=== PATIENT | male | born 1960 | race African-American/Black ===

== ENCOUNTER 2023-12-04 13:34 | Outpatient (CLI) | payer OTHER, SELFPAY ==
--- NOTE | ~2023-12-04 | MR_ITS ---
EXAMINATION: MR brain/brain stem wo/w con DATE: 12/04/2023 14:51 INDICATION: Chronic sinusitis with skull base dehiscence. TECHNIQUE: Magnetic resonance imaging (MRI) of the brain and brainstem was performed without and with 17 mL MultiHance intravenous contrast. COMPARISON: None. FINDINGS: There are scattered areas of nonspecific increased T2-weighted signal intensity in the cere bral white matter, which is within normal limits for the patient's age. There is no intracranial hemo rrhage, acute infarction, or abnormal intracranial mass lesion. The ventricles are normal in size. Th ere is extensive mucosal thickening in the paranasal sinuses and nasal cavity with only mild involvem ent of the sphenoid sinus and left maxillary sinus. There is dehiscence of the medial wall of right o rbit. There is dehiscence of right posterior wall of frontal sinus. There is a trace right mastoid ef fusion. IMPRESSION: 1. Normal aging brain. 2. Extensive mucosal thickening in the paranasal sinuses and nasal cavity, most likely sinonasal poly posis. Reviewed, dictated and finalized at location A. IMPRESSION: 1. Normal aging brain. 2. Extensive mucosal thickening in the paranasal sinuses and nasal cavity, most likely sinonasal polyposis.
== END 2023-12-04 13:35 | disposition home or self-care (01) ==
LOC: ANHIMG 13:35
PROVIDERS: Visit Provider Internal Medicine
DX: E78.5 Hyperlipidemia, unspecified (principal); I10 Essential (primary) hypertension; J45.909 Unspecified asthma, uncomplicated; S83.90XA Sprain of unspecified site of unspecified knee, initial encounter; J33.9 Nasal polyp, unspecified; J32.9 Chronic sinusitis, unspecified; R73.9 Hyperglycemia, unspecified; H25.9 Unspecified age-related cataract
CPT/HCPCS: 70553; A9577

== ENCOUNTER 2025-03-02 00:09 | Day surgery (SDC) | payer OTHER, SELFPAY ==
[2025-02-18 08:06] VITALS: BMI 27.5
--- NOTE | 2025-02-18 08:24 | PC.NURSE ---
Addendum entered by Neftaly Soriano RN 02/18/25 08:32: EKG in past year and BMP or CMP done in past 2 months would be helpful if you have them, else de jesus we will do day of stay. Original Note: Report to hospital entrance 7 right of the green pavilion located off [address] next to 's parking lot, at time _0700_ on date _[id number]_. Planned Procedure Time: _0900_.? Time changes happen often and if your time is changed the preop area will call you the afternoon before. - You and your visitor will be asked to self-screen and do not enter if you have any COVID symptoms. Please call surgeon if you need to reschedule. - A mask is optional within the hospital at this time. Patients may have clear liquids (water, carbonated beverages, clear teas, apple juice) until 3 hours prior to surgery with a maximum of 20 ounces. - No food from midnight until time of surgery and no smoking, or chewing tobacco (or any form of nicotine). No chewing gum, candy or mints. Take only the following medications with a SIP of water on the morning of surgery: __Sinus rinse and Flonase.___ DO NOT STOP ANY OF YOUR OTHER PRESCRIPTION MEDICATIONS PRIOR TO SURGERY EXCEPT THE FOLLOWING Hold all vitamins and supplements for 3 days per anesthesiologist. Medications to discontinue per physician Aspirin instruction per Dr Phillips. Date to take last dose Please no make-up, nail wolof, hairspray, perfume, deodorant, or body powder the day of surgery.? No jewelry (including any body piercings) or valuables the day of surgery, leave them at home.? Please take a shower or bath the night before, or the morning of, surgery with an antibacterial soap.? Wear comfortable, loose fitting clothing.? - Jewelry must be removed prior to entering the operating room.? Rings and piercings that are not removed may be cut off. - The hospital will not accept responsibility for valuables.? - Please leave all valuables, including medications, at home the day of surgery. If you are going home after surgery, a licensed tank wagon driver must drive you home.? - NO public transportation without another adult if you receive anesthesia. - We recommend that an adult stay with you for 24 hours following discharge. - We also recommend that you do not drive, make important decision, drink alcoholic beverages, or take any drugs that were not prescribed by your health care provider for at least 24 hours after your discharge time. Follow any additional instructions given to you from your surgeon. Telephone instructions given to __Val Abraham___and asked if any additional questions and then verbalized understanding. Patient advised to call surgeon office or pre surgery nurse liaison [phone] if any additional questions.
[2025-03-02] VITALS (10 sets, daily range): BP systolic 138–210; BP diastolic 80–125; PULSE 76–94; RESP 12–16; TEMP 36.3–36.6; O2SAT 96–100
--- NOTE | 2025-03-02 06:05 | ECG_ITS ---
Test Date: 2025-03-02 08:15:07 Measurements Intervals Sunset Rate: 76 P: 53 NH: 167 QRS: 15 QRSD: 94 T: 41 QT: 386 QTc: 436 Interpretive Statements SINUS RHYTHM No previous ECG available for comparison Electronically Signed On 03-02-2025 14:31:36 CDT by Iraj Topete M.D.
[2025-03-02 08:00] LABS: INR 1.0; Partial Thromboplastin Time 26.9 Seconds (22.3-36.8); Prothrombin Time 13.2 Seconds (11.1-14.7)
[2025-03-02] MEDS: OXYMETAZOLINE HCL 0.05% NAS 15 ML BTL (*BKC) 1 SPRAY NASAL (08:01)
[2025-03-02] MEDS: LACTATED RINGERS 1,000 ML 30 ML IV CONT ×2 (08:01→10:22)
[2025-03-02] MEDS: ACETAMINOPHEN 500 MG TABLET 1000 MG PO (08:01)
[2025-03-02 08:11] LABS: Anion Gap 10 mmol/L (4-12); Blood Urea Nitrogen 12 mg/dL (9-20); Calcium 9.5 mg/dL (8.4-10.2); Carbon Dioxide 26 mmol/L (22-30); Chloride 105 mmol/L (98-107); Estimated CRCL calculation 66 ml/min; Estimated Glomerular Filt Rate > 60; Glucose 93 mg/dL (65-110); Potassium 3.9 mmol/L (3.4-5.0); Sodium 141 mmol/L (137-145)
--- NOTE | 2025-03-02 08:12 | WPDANESEPPF ---
Anes - Initial Pre Proc Eval Procedure: Operation Date: 03/02/25 09:00 Proposed Procedures p Image Guided Bilateral Frontal Sinusotomy, Bilateral Ethmoidectomy, Bilateral Sphenoidotomy, Bilateral Maxillary Antrostomy, Bilateral Turbinate Reduction, Bilateral Nasal Polypectomy - Eddie Phillips MD s Endoscopic Septoplasty - Eddie Phillips MD Date/Time: 03/02/25 08:12 Surgeon: Eddie Phillips MD Pre Op Diagnosis: Chronic Sinusitis, Deviated Septum Patient Data Age: 64 Gender: M Height: 1.8 m Weight: 89.8 kg Last Vital Signs Temp 36.3 C L 03/02/25 08:05 Pulse 79 03/02/25 08:05 Resp 16 03/02/25 08:05 BP 188/121 H 03/02/25 08:05 Pulse Ox 100 03/02/25 08:05 O2 Del Method Room Air 03/02/25 08:05 Allergies Allergy/AdvReac Type Severity Reaction Status Date / Time No Known Allergies Allergy Verified 03/02/25 07:59 Home Medications ?Medication ?Instructions ?Recorded ?Confirmed ?Type albuterol sulfate 90 mcg/actuation 2 inh inhalation Q6H PRN shortness 08/31/23 02/18/25 History breath activated powder inhaler of breath or wheezing amlodipine 10 mg tablet 10 mg PO HS 08/31/23 02/18/25 History aspirin 81 mg tablet,delayed 81 mg PO HS 08/31/23 02/18/25 History release atorvastatin 20 mg tablet 20 mg PO QHS 08/31/23 02/18/25 History hydrochlorothiazide 12.5 mg capsule 12.5 mg PO DAILY 08/31/23 02/18/25 History losartan 100 mg tablet 100 mg PO DAILY 08/31/23 02/18/25 History cetirizine 10 mg tablet (24Hour 10 mg PO DAILY 02/18/25 02/18/25 History Allergy) fluticasone propionate 50 2 spray intranasal Q12H 02/18/25 02/18/25 History mcg/actuation nasal spray,suspension (Aller-Hadley) sodium bicarbonate-sodium chloride 1 packet .Route BID 02/18/25 02/18/25 History packet for sinus irrigation ([employer] Sinus Rinse Refill packet) Laboratory Tests 03/02/25 07:32 PT 13.2 Seconds (11.1-14.7) INR 1.0 APTT 26.9 Seconds (22.3-36.8) Sodium 141 mmol/L (137-145) Potassium 3.9 mmol/L (3.4-5.0) Chloride 105 mmol/L (98-107) Carbon Dioxide 26 mmol/L (22-30) Anion Gap 10 mmol/L (4-12) BUN 12 mg/dL (9-20) Creatinine 1.06 mg/dL (0.7-1.3) Estim Creat Clear Calc 66 ml/min Estimated GFR > 60 (59 - ) Glucose 93 mg/dL (65-110) Calcium 9.5 mg/dL (8.4-10.2) Patient hx anesthesia problems: none Family hx anesthesia problems: none Results Review: All pre-operative results and documents have been reviewed as part of the pre-operative evaluation. [facility] Past Medical History Medical History (Updated 03/02/25 @ 08:12 by Fernando Dailey MD) HTN (hypertension) Chronic viral hepatitis Surgical History Surgical History (Updated 03/02/25 @ 08:12 by Fernando Dailey MD) H/O sinus surgery Social History Social History Smoking status: Never smoker Alcohol intake: never Substance use: never Living arrangements: incarcerated Anes - Eval Final PreProcedure Day of Procedure 03/02/25 08:12 Patient weight: overweight Heart: regular rate and rhythm Lungs: clear to auscultation Airway: Mallampati scale class II and special considerations poor dentition Neurological: alert and oriented Last oral intake: >/= 8 hours ASA classification: III Emergent: no Anesthetic plan: proceed Anesthesia type and monitoring: general ETT and standard monitoring Results Review: All pre-operative results and documents have been reviewed as part of the pre-operative evaluation. Informed Consent: The patient's anesthetic plan and its attendant risks and benefits were discussed with the patient/family/POA. Questions were solicited and answers provided to the satisfaction of the patient/family/POA.
--- NOTE | 2025-03-02 08:19 | PM.IMHP ---
H&P: HPI History of Present Illness Date/Time: 03/02/25 08:19 Chief Complaint: chronic sinusitis with nasal polyps Narrative: hx of right FESS 18 years ago. Now with grade 4 bilateral nasal polyposis and extensive pansinusitis, here for surgery. Review of Systems Review of Systems: All systems reviewed & are unremarkable except as noted in HPI and below PMFSH Past Medical History Medical History HTN (hypertension) Chronic viral hepatitis Surgical History Surgical History H/O sinus surgery Social History Social History Smoking status: Never smoker Alcohol intake: never Substance use: never Living arrangements: incarcerated Meds Home Medications and Allergies Home Medications ?Medication ?Instructions ?Recorded ?Confirmed ?Type albuterol sulfate 90 mcg/actuation 2 inh inhalation Q6H PRN shortness 08/31/23 02/18/25 History breath activated powder inhaler of breath or wheezing amlodipine 10 mg tablet 10 mg PO HS 08/31/23 02/18/25 History aspirin 81 mg tablet,delayed 81 mg PO HS 08/31/23 02/18/25 History release atorvastatin 20 mg tablet 20 mg PO QHS 08/31/23 02/18/25 History hydrochlorothiazide 12.5 mg capsule 12.5 mg PO DAILY 08/31/23 02/18/25 History losartan 100 mg tablet 100 mg PO DAILY 08/31/23 02/18/25 History cetirizine 10 mg tablet (24Hour 10 mg PO DAILY 02/18/25 02/18/25 History Allergy) fluticasone propionate 50 2 spray intranasal Q12H 02/18/25 02/18/25 History mcg/actuation nasal spray,suspension (Aller-Hadley) sodium bicarbonate-sodium chloride 1 packet .Route BID 02/18/25 02/18/25 History packet for sinus irrigation ([employer] Sinus Rinse Refill packet) Allergies Allergy/AdvReac Type Severity Reaction Status Date / Time No Known Allergies Allergy Verified 03/02/25 07:59 Vital Signs Vital Signs - 24 hr 03/02/25 08:05 Temperature 36.3 C L Pulse Rate 79 Respiratory Rate 16 Blood Pressure 188/121 H Pulse Oximetry 100 Oxygen Delivery Room Air Exam Narrative: Bilateral pansinusitis with extensive nasal polyposis, rest of exam wnl H&P: Results Labs Labs: [facility] 03/02/25 07:32 Sodium 141 Potassium 3.9 Chloride 105 Carbon Dioxide 26 BUN 12 Creatinine 1.06 Glucose 93 Calcium 9.5 Assessment and Plan Assessment and plan (1) Nasal polyps: Code(s): J33.9 - Nasal polyp, unspecified Status: Acute (2) Chronic sinusitis: Code(s): J32.9 - Chronic sinusitis, unspecified Status: Acute Plan Extensive sinus disease and nasal polyposis, here today for endoscopic sinus surgery with polypectomy under anesthesia. r/b/a reviewed with patient who understands and agrees with plan, all questions answered and consents to proceed. refer to outpt H&P for additional detail.
--- NOTE | 2025-03-02 08:22 | WPDHPUPDATE1 ---
History and Physical Update Update Date/Time: 03/02/25 08:22 History and Physical has been reviewed, including an updated exam of the patient. There are NO changes in the patient's condition. Risks, benefits, and alternatives have been discussed and questions answered. Patient agrees to proceed with procedure.
[2025-03-02] MEDS: ceFAZolin 2 GM in SODIUM CHLORIDE 0.9% IV 50 ML 100 ML IVPB (08:41)
--- NOTE | 2025-03-02 09:11 | S_PTH ---
PATIENT: Sahil Bella LOC: [facility] U#:[id number] AGE/SX: 64/M ROOM: RE03/02/[address]: Eddie Phillips MD : 1960 BED: DIS: 03/02/2025 SPEC #: [id number] RECD: 03/02/25 11:39 STATUS: FARIDEH REIda #: [id number] CHRISTY: 03/02/25 09:[address]: Eddie Phillips DEPT: [facility] Surgical RECD BY: Pam Umanzor ENTERED: 03/02/25 11:39 SP TYPE: Surgical OTHR DR: UNKNOWN,DOCTOR Tissues: A - Sinus Contents B - Polyp Procedures: Hematoxylin and Eosin Stain Gross and Microscopic Level 4 P16
[2025-03-02] MEDS: TRIAMCINOLONE ACET INJ 40 MG/ML VIAL IM (10:02)
--- NOTE | 2025-03-02 10:04 | P.OP_ITS ---
Procedure Note - Detailed Date of Procedure 03/02/25 Pre-op Diagnosis Chronic Sinusitis, Deviated Septum Post-op Diagnosis Same Procedure Performed Bilateral frontal sinusotomy, total ethmoidectomy, sphenoidotomy, maxillary antrostomy, turbinoplasty and nasal polypectomy. Image guided Surgeon Eddie Phillips MD Anesthesia General Indications chronic sinusitis, nasal polyposis Findings extensive polyp disease and osteitic changes, residual bone vs. osteoma on right side. Evidence of previous FESS. Did not require septoplasty. Resected right middle turbinate. Kenalog soaked nasopore bilaterally Description of Procedure On the date of procedure the patient was met in the preoperative area and risk and benefits of the procedure reviewed with the patient as documented in the H&P and they elected to proceed with surgery. Patient was brought back to the operating room by the anesthesia team and underwent general endotracheal anesthesia. Once an adequate plane of anesthesia was obtained a timeout was pe rformed to assure the patient identification the patient here to be performed were correct. They were.The patient was then prepped and draped in the normal fashion for endoscopic sinus surgery. The diffusion image guidance system was calibrated and used for the entire case. Afrin-soaked pledgets were placed in the nasal cavities bilaterally. The entire case was performed under endoscopic visualization. Nasal endoscopy was performed at the beginning of the case. 1% lidocaine with 1:100,000 epinephrine was then injected into the root of the middle turbinate and lateral nasal wall. Attention was first directed towards the left side. The middle turbinate was medialized and the osteomeatal complex was identified with a martha probe. Using a 90 degree backbiter, the uncinate process was reflected anteriorly and removed using a combination of sharp and powered dissection. The maxillary antrostomy was then created and widened by identifying the natural ostia and opening the sinus with straight henrique-cut forceps, backbiter, and microdebrider. Polyp tissue encountered was removed with microdebrider. Continuing with the microdebrider, the anterior ethmoid bulla was opened. Careful dissection was carried out posteriorly, through the basal lamella and posterior ethmoid cells until the sphenoid rostrum was identified. A Murray suction bluntly identified the sphenoid os and the opening was widened with microdebrider and mushroom punch to 5mm. Using an image guided curved suction as well as J-curette, the posterior most ethmoid cell was identified and the ethmoids were bluntly fractured and dissected from posterior to anterior along the base of the skull. The remaining bone fragments were removed with appropriate curved instruments and microdebrider.? Lastly, image guided frontal suction and sinus seeker were used to identify the frontal sinus and enter it.? The frontal sinus was irrigated with saline which removed polyp tissue.? Next, the right maxillary antrostomy, ethmoidectomy and sphenoidotomy were carried out in identical fashion with findings of gross polyp disease throughout. There was a large polyp within the right maxillary sinus with evidence of either osteoma formation or bony reaction from chronic infection and a large piece of material was removed from the right ethmoid and frontal region, with polyp tissue covering it. This was sent separate for specimen. The maxillary sinus was then irrigated copiously.? The right middle turbinate was atrophic and polypoid, and thus was partially resected.? Next, the right frontal sinus was identified and entered using image guided suction, seeker and frontal sinus angled biting instruments.? The frontal sinus was then irrigated.? No clinical evidence of CSF throughout the case.? With all sinuses opened and no remaining polyp disease appreciated, kenalog soaked nasopore packing was placed in the ethmoid acvities bilaterally. Hemostasis was ensured. Lastly, the bilateral inferior turbinates were reduced submucosally using 2mm microdebrider and then outfractured with a sayer elevator. This significantly opened the airway. At this point, the procedure was concluded. Care the patient was transferred back to the anesthesia team and the patient was awoke in the operating room and transferred back to the PACU in stable condition. Eddie Phillips M.D. Estimated Blood Loss 200 Drains No Packing Yes (nasopore, soaked in kenalog) Pathology Yes (right nasal mass, left nasal polyps) Complications No immediate complications Condition Stable Disposition PACU
[2025-03-02] MEDS: fentaNYL CITRATE INJ (*CRX) 100 MCG/2 ML VIAL 25 MCG IV PUSH ×2 (10:47→10:50)
[2025-03-02] MEDS: ONDANSETRON INJ 4 MG/2 ML VIAL IV PUSH (11:33)
[2025-03-02] MEDS: oxyCODONE HCL (*CRX) 5 MG TAB IR PO (11:55)
== END 2025-03-02 12:38 ==
PROVIDERS: Anesthesiology; Visit Provider Otolaryngology
PROC: (CPT 31256; principal; 2025-03-02 09:00)
DX: J32.9 Chronic sinusitis, unspecified (principal); D16.4 Benign neoplasm of bones of skull and face; J34.2 Deviated nasal septum; J33.9 Nasal polyp, unspecified; I10 Essential (primary) hypertension; B18.9 Chronic viral hepatitis, unspecified
CPT/HCPCS: 31256; 31257; 31276; 30140; 61782; 36415; 80048; 85610; 85730; 88305; 88342; 93005; J0690; A9270; J0360; J1100; J2003; J2004; J2405; J2704; J3010; J3301; J7050; J7120